=== PATIENT | male | born 1995 | race Caucasian/White ===

== ENCOUNTER 2016-10-20 17:49 | Emergency (ER) | payer OTHER ==
[~2016-10-20] VITALS: Ht 175.3 cm; Wt 83.2 kg
[2016-10-20 17:50] VITALS: BP 135/78
[2016-10-20] MEDS ORDERED: PRED20TA PO (19:27)
[2016-10-20] MEDS ORDERED: BACT800T5 PO (19:27)
== END 2016-10-20 19:41 | disposition home or self-care (01) ==
LOC: M ED 17:49
DX: L23.7 Allergic contact dermatitis due to plants, except food (principal); L03.115 Cellulitis of right lower limb; L03.116 Cellulitis of left lower limb